=== PATIENT | female | born 1985 | race Caucasian/White ===

== ENCOUNTER 2022-09-03 09:21 | Outpatient (CLI) | payer MEDICAID ==
[~2022-09-03] VITALS: Ht 162.5 cm; Wt 76.2 kg
[2022-09-03] MEDS ORDERED: GABA300C PO (10:30)
[2022-09-03] MEDS ORDERED: DICL75TA2 PO (10:30)
[2022-09-03] MEDS ORDERED: INSU100V16 SQ (10:30)
== END 2022-09-03 10:51 | disposition home or self-care (01) ==
LOC: PREOP 09:21
PROVIDERS: ATTEND Orthopaedic Surgery
DX: Z01.818 Encounter for other preprocedural examination (principal)

== ENCOUNTER 2022-09-04 09:12 | Day surgery (SDC) | payer MEDICAID ==
--- NOTE | 2022-09-03 11:54 | HISTORY AND PHYSICAL ---
DATE OF SERVICE: 09/04/2022 Date of surgery will be 09/04/2022 for left long finger trigger finger release. 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 She previously underwent a right long finger trigger release. She reports stiffness, and activity limitations because of the finger. She reports this has been ongoing and progressive over the last several months. She trauma. Due to functional impairment and failure to improve with conservative measures, the patient elected to proceed with surgical intervention. REVIEW OF SYSTEMS: No chest pain. No shortness of breath. No dysuria. PAST MEDICAL HISTORY: Diabetes mellitus, anxiety disorder, depression, tension headaches, diabetic neuropathy, arrhythmia, seizures, carpal tunnel. PAST SURGICAL HISTORY: Trigger finger, tubal ligation, cholecystectomy, , tonsillectomy. FAMILY HISTORY: Significant for diabetes, depression. PRIMARY CARE PROVIDER: [facility] in [place]. MEDICATIONS: NovoLog and meclizine. ALLERGIES: PENICILLIN, DEMEROL, AND INSULIN. SOCIAL HISTORY: The patient smokes one pack per day. Denies alcohol use. PHYSICAL EXAMINATION: GENERAL: The patient is well-developed, well-nourished, in no acute distress. HEENT: Normocephalic, atraumatic. Pupils equal, round, reactive to light. Oropharynx is clear. NECK: Supple. No lymphadenopathy. LUNGS: Clear to auscultation bilaterally. HEART: Regular rate and rhythm. ABDOMEN: Soft, nontender, nondistended. EXTREMITIES: The left long finger demonstrates tenderness over A1 conor. She can demonstrate active triggering. She has full MCP, DIP and PIP flexion and extension, but painful flexion under A1 conor. IMPRESSION: Left long finger trigger finger. PLAN: Left long finger trigger release. The risks, benefits, options, ramifications and recovery have been discussed at length with the patient. She understands and wishes to proceed. Job ID: [id number] DocumentID: [id number] Dictated Date: 09/03/2022 09:02:01 Kettle Hand Date: 09/03/2022 11:52:00 Dictated By: MIRZA OLMOS MD
[2022-09-04] VITALS (7 sets, daily range): BP systolic 138–160; BP diastolic 68–86
[~2022-09-04] VITALS: Ht 162 cm; Wt 76.2 kg
[~2022-09-04 09:12] MED LIST: DICL75TA2 PO; GABA300C PO; HYDROcodone/APAP 5 MG/325 MG (LORTAB) TAB PO PRN; INSU100V16 SQ
--- NOTE | 2022-09-04 09:22 | Progress Note-Pre Operative ---
Pre-Operative Progress Note Date of Available H&P: Sep 03, 2022 Date H&P Reviewed: Sep 04, 2022 Time H&P Reviewed: 09:22 Changes from last HP none Pre-Operative Diagnosis: left long trigger finger MIRZA OLMOS MD Sep 04, 2022 09:22
--- NOTE | 2022-09-04 09:23 | Progress Note-Post Operative ---
Post-Operative Progess Note Surgeon (s)/Finish Remover (s) Surgeon MIRZA OLMOS MD Finish Remover: Bud Zhang Pre-Operative Diagnosis left long trigger finger Post-Operative Diagnosis left long trigger finger Procedure & Operative Findings Date of Procedure 09/04/22 Procedure Performed/Findings left long trigger finger release Anesthesia Type MAC plus local Estimated Blood Loss Estimated blood loss (mL): minimal Specimens/Packing Specimens Removed none Packing: none MIRZA OLMOS MD Sep 04, 2022 09:23
[2022-09-04] MEDS ORDERED: CLINDAMYCIN 600 MG/50 ML IVPB 50 ML IV ONE (09:30)
[2022-09-04] MEDS ORDERED: LACTATED RINGERS 1,000 ML IV PRN (09:45)
[2022-09-04] MEDS ORDERED: fentaNYL INJ 100 MCG/2 ML AMP ONE (10:01)
[2022-09-04] MEDS ORDERED: LIDOCAINE PF 2% 5 ML (XYLOCAINE) VIAL ONE (10:01)
[2022-09-04] MEDS ORDERED: ONDANSETRON 4 MG/2 ML (SDV) Z0FRAN ONE (10:01)
[2022-09-04] MEDS ORDERED: MIDAZOLAM 2 MG/2 ML (VERSED) VIAL ONE (10:02)
[2022-09-04] MEDS ORDERED: PROPOFOL INJECTION 50 ML IV ONE (10:02)
[2022-09-04] MEDS ORDERED: LIDOCAINE 1% INJ 20 ML VIAL ONE (10:12)
[2022-09-04] MEDS ORDERED: BUPIVACAINE 0.5% 30 ML (SENSORCAINE) VIAL ONE (10:12)
[2022-09-04] MEDS ORDERED: BUPIVACAINE 0.5% 30 ML (SENSORCAINE) VIAL IJ ONE (11:10)
[2022-09-04] MEDS ORDERED: LIDOCAINE 1% INJ 20 ML VIAL IJ ONE (11:12)
--- NOTE | 2022-09-04 11:23 | Anesthesia-General Post-Op ---
MAC Patient Condition Mental Status/LOC: Same as Preop Cardiovascular: Satisfactory Nausea/Vomiting: Absent Respiratory: Satisfactory Pain: Controlled Complications: Absent Post Op Complications Complications None Follow Up Care/Instructions Patient Instructions None needed. Anesthesiology Discharge Order Discharge Order Patient is doing well, no complaints, stable vital signs, no apparent adverse anesthesia problems. No complications reported per nursing. KHLOE BEJARANO CRNA Sep 04, 2022 11:23
[2022-09-04] MEDS ORDERED: HYDROmorphone 2 MG/ML VIAL (DILAUDID) IV ONE (11:30)
[2022-09-04] MEDS ORDERED: ONDANSETRON 4 MG/2 ML (SDV) Z0FRAN IVP PRN (11:30)
--- NOTE | 2022-09-04 15:55 | OPERATIVE REPORT ---
DATE OF SERVICE: 09/04/2022 PREOPERATIVE DIAGNOSIS: Left long finger trigger finger. POSTOPERATIVE DIAGNOSIS: Left long finger trigger finger. PROCEDURE: Left long finger trigger finger release. SURGEON: Bryan Olmos MD CUSTOMER CARE AGENT: Bud Zhang, who assisted throughout the procedure and closed the incision. ANESTHESIA: Monitored anesthesia care plus local by Barrett Carmona CRNA. TOURNIQUET TIME: 5 minutes at 250 mmHg. ESTIMATED BLOOD LOSS: Minimal. DRAINS: None. COMPLICATIONS: None. POSTOPERATIVE PLAN: Routine protocol. The patient was transferred to recovery room awake and stable condition. STATEMENT OF MEDICAL NECESSITY: The patient is a 37-year-old right-hand dominant female with complaints of left long finger catching and locking. She demonstrates active triggering. She was tender over A1 conor. She tried rest and activity modifications without relief. Due to functional impairment and failure to improve with conservative measures, the patient elected to proceed with surgical intervention. DESCRIPTION OF PROCEDURE: After risks and benefits of the procedure were discussed and questions were answered and informed consent was signed and placed on chart, operative site was confirmed in the preoperative holding area and initialed by surgeon. The patient was then transferred to the operating room. After adequate levels of monitored anesthesia care obtained, a timeout was called, confirming the operative site and under sterile conditions, the incision site over the left long finger was infiltrated with a combination of plain lidocaine and plain Marcaine. Left upper extremity was prepped and draped in the usual sterile fashion with arm elevated, tourniquet was inflated to 250 mmHg. Longitudinal incision was made over the A1 conor at the base of the long finger. The underlying soft tissues were carefully dissected. The A1 conor was identified and sharply incised by pushing through with the scalpel blade. There was dense scarring of the A1 conor, which was fully released. The finger was taken through range of motion with no catching or locking noted with full range of motion noted. Tourniquet was deflated. Pressure was used for hemostasis. Wound was copiously irrigated and then closed with 4-0 nylon in simple interrupted fashion. A soft dressing was applied. The patient was transferred to recovery room awake and stable condition. Job ID: [id number] DocumentID: [id number] Dictated Date: 09/04/2022 11:15:41 Wrapper Sorter Date: 09/04/2022 15:52:00 Dictated By: BRYAN OLMOS MD
== END 2022-09-04 12:20 | disposition home or self-care (01) ==
LOC: SDC 09:12
PROVIDERS: ATTEND Orthopaedic Surgery
DX: M65.332 Trigger finger, left middle finger (principal); E10.40 Type 1 diabetes mellitus with diabetic neuropathy, unspecified; F17.210 Nicotine dependence, cigarettes, uncomplicated; Z79.4 Long term (current) use of insulin; Z96.41 Presence of insulin pump (external) (internal)
CPT/HCPCS: 82947; 84703; 87081

== ENCOUNTER 2023-04-13 17:33 | Emergency (ER) | payer MEDICAID ==
[~2023-04-13] VITALS: Ht 160 cm; Wt 74.8 kg
[~2023-04-13 17:33] MED LIST changes: -HYDROcodone/APAP 5 MG/325 MG (LORTAB) TAB PO PRN
--- NOTE | 2023-04-13 17:50 | ED Neck-Back Pain/Injury ---
General Chief Complaint: Head/Cervical Problems Stated Complaint: NECK/SHOULDER PAIN Source of Information: Patient Exam Limitations: No Limitations History of Present Illness Date Seen by Provider: Apr 13, 2023 Time Seen by Provider: 17:47 Initial Comments Patient is a 37-year-old female presents ED with neck pain. Neck pain over the past 3 weeks. No specific injury. She did woke up with this sharp pain in her neck. Since then she has had continuous worsening pain. She is having difficulty moving her head side to side. She reports numbness and tingling down into her hands bilateral. She states the pain is described as more as numbness and tingling. Pain with any type of movement. Has been seen at [facility] as well as her primary care physician and has received IM Toradol shot, Flexeril and baclofen without much improvement. She denies chest pain, shortness of breath, abdominal pain vomiting, diarrhea. She denies any mid to the lower back pain. Denies history of similar type symptoms in the past. She is a type I diabetic, history of chronic kidney disease and seizures. Currently on insulin pump. She is not on dialysis. She denies fever, chills, body aches, drug use, headache, visual changes, bowel or urine incontinence, saddle paresthesia, lower extremity weakness. She is not on any type of neuropathy medication. Pain became worse today. She is able to move her shoulders and grasp things. She she states her arms feel weaker. Allergies and Home Medications Allergies Coded Allergies: Penicillins (Verified Allergy, Unknown, HIVES, 09/04/22) meperidine (Verified Allergy, Unknown, HIVES, 09/04/22) Patient Home Medication List Home Medication List Reviewed: Yes Diclofenac Sodium (Diclofenac Sodium) 75 Mg Tablet.dr, 75 MG PO BID, (Reported) Entered as Reported by: HOUSTON GROVER on 09/03/22 1030 Gabapentin (Neurontin) 300 Mg Capsule, 300 MG PO DAILY, (Reported) Entered as Reported by: HOUSTON GROVER on 09/03/22 1030 Insulin Aspart (Novolog) 100 Unit/Ml Susp, 80 UNIT SQ UD, (Reported) Entered as Reported by: HOUSTON GROVER on 09/03/22 1030 Review of Systems Constitutional: No chills, No diaphoresis, No malaise, No weakness EENTM: No ear pain, No blurred vision, No double vision Respiratory: No cough, No dyspnea on exertion Cardiovascular: No chest pain Gastrointestinal: No abdominal pain, No diarrhea, No nausea, No vomiting Genitourinary: No decreased output, No discharge Musculoskeletal: No back pain; joint pain, muscle pain, neck pain Psychiatric/Neurological: Other (Numbness and tingling upper extremities bilateral) All Other Systems Reviewed Negative Unless Noted: Yes Past [id number]-Faqoex Hx Immunizations Up To Date First/Initial COVID19 Vaccinat: 2020 Second COVID19 Vaccination Sanchez: 2020 Third COVID19 Vaccination Date: 2020 Seasonal Allergies Seasonal Allergies: No Past Medical History Surgeries: Yes (TUBAL LIGATION, C SECTION, PORT PLACMENT AND REMOVAL) Gallbladder, Tonsillectomy Respiratory: Yes Pneumonia Currently Using CPAP: No Currently Using BIPAP: No Cardiac: Yes (HYPOTENSIVE 2016) Neurological: No 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 oz. kg; 29.03 BMI Method: General Appearance: No Apparent Distress, WD/WN HEENT: PERRL/EOMI, TMs Normal, Normal ENT Inspection, Pharynx Normal Neck: Other (Cervical midline tenderness. Pain with [id number] movement, flexion extension.) Cardiovascular: Regular Rate, Rhythm, No Edema, No Gallop, No JVD, No Murmur Respiratory: Chest Non Tender, Lungs Clear, Normal Breath Sounds, No Accessory Muscle Use Gastrointestinal: Normal Bowel Sounds, No Organomegaly, No Pulsatile Mass, Non Tender Back: Normal Inspection, No CVA Tenderness, No Vertebral Tenderness Extremity: Normal Capillary Refill, Normal Inspection, Normal Range of Motion, Non Tender, Other (Normal active range of motion bilateral shoulders. Appraiser Art strength 5 out of 5. Elbow flexion extension strength 5 out of 5. Neurovascular intact) Neurologic/Psychiatric: Alert, Oriented x3, No Motor/Sensory Deficits, Normal Mood/Affect, utility worker production II-XII Norm as Tested Skin: Normal Color, Warm/Dry Progress/Results/Core Measures Results/Orders My Orders Orders - GALLITO FLORES Ct Cervical Spine Wo (04/13/23 17:46) Vital Signs/I&O 04/13/23 04/13/23 17:40 18:38 Temp 35.3 Pulse 73 68 Resp 16 16 B/P (MAP) 137/78 (97) 137/76 Pulse Ox 99 100 O2 Delivery Room Air Room Air Departure Communication (PCP) Patient with cervical midline pain and bilateral cervical muscle sunshine. Pain started around 3 weeks ago. Sharp shooting pain bilateral upper extremities. Differential diagnoses cervical muscle strain, cervical radiculopathy. No chest pain or shortness of breath. No headache or dizziness. Pain with movement of h er cervical neck especially side to side movement and flexion. She has no bowel or urine incontinence or saddle paresthesia. She does work in a [place] [employer] [place] and does lift heavy objects. Cannot recall any specific injury. She has seen her primary care physician as well as [facility] with no improvement with just pain medication. Due to continued pain and no improvment did order a CT scan of the cervical spine. Concern for potential bulging disc, lesion which may be seen on a CT scan. She refused anything for pain. Currently on muscle relaxer and anti-inflammatory. She does have appropriate outside production inspector strength throughout. She does have normal range of motion of the shoulders, elbows and wrists. There is no evidence of arm weakness. She has no strokelike symptoms. CT scan cervical spine negative for acute abnormality. Mild lordotic curvature. Discussed with patient CT scan is somewhat limited. She is scheduled follow-up with a chiropractor on Friday. Clinically appears to be more musculoskeletal. Recommend stretching. Continue with your muscle relaxers. She does not want anything different for pain. Would likely benefit with physical therapy at this time and/or adjustment. If continued pain MRI for further evaluation. She has no neuropathy type pain in her lower extremities. No evidence suggesting spinal cord injury. Impression Primary Impression: Neck pain Disposition: HOME, SELF-CARE Condition: Stable Departure-Patient Inst. Decision time for Depature: 18:33 Referrals: NO,LOCAL PHYSICIAN (PCP) [place] Care Phys[place] [facility] [place] Instructions: Cervical Muscle Strain (DC) Add. Discharge Instructions: Recommend range of motion's exercises. Continue with your anti-inflammatories and muscle relaxer. Provided work note. Would recommend physical therapy and/or further imaging outpatient only if pain progress. All discharge instructions reviewed with patient and/or family. Voiced understanding. Work/School Note: Work Release Form Date Seen in the Emergency Department: Apr 13, 2023 Return to Work: Apr 17, 2023 GALLITO FLORES Apr 13, 2023 17:50
--- NOTE | 2023-04-13 18:16 | Diagnostic Imaging Report ---
PROCEDURE: CT cervical spine without contrast. TECHNIQUE: Multiple contiguous axial images were obtained through the cervical spine without the use of intravenous contrast. Sagittal and coronal reformations were then performed. Auto Exposure Controls were utilized during the CT exam to meet ALARA standards for radiation dose reduction. INDICATION: Neck pain. Upper extremity radiculopathy. COMPARISON: None. FINDINGS: No acute fracture or dislocation is seen in the cervical spine. No focal osseous lesion. There is slight reversal of the normal lordotic curvature of the cervical spine which is likely due to positioning. The craniocervical junction is intact. No high density material is seen within the spinal canal. The paraspinal soft tissues are normal. The included lungs are clear. IMPRESSION: No acute fracture or dislocation in the cervical spine. Dictated by: Dictated on workstation # [id number]
[2023-04-13 18:38] VITALS: BP 137/76
== END 2023-04-13 18:39 | disposition home or self-care (01) ==
LOC: EDUNIT# 17:33 → ER 17:35
DX: M54.2 Cervicalgia (principal); E10.9 Type 1 diabetes mellitus without complications; Z96.41 Presence of insulin pump (external) (internal)
CPT/HCPCS: 72125